=== PATIENT | female | born 1995 | race Caucasian/White ===

== ENCOUNTER → 2018-10-30 | Outpatient (CLI) | payer BC | LOC: LAB 14:24 | PROVIDERS: ATTEND Internal Medicine Endocrinology, Diabetes & Metabolism | DX: E06.3 Autoimmune thyroiditis (principal) | CPT/HCPCS: 36415; 84443 ==

== ENCOUNTER → 2019-01-31 | Outpatient (CLI) | payer BC | LOC: LAB 10:50 | PROVIDERS: ATTEND Internal Medicine Endocrinology, Diabetes & Metabolism | DX: E06.3 Autoimmune thyroiditis (principal) | CPT/HCPCS: 36415; 84439; 84443; 84481 ==